=== PATIENT | male | born 1945 | race Caucasian/White ===

== ENCOUNTER 2023-04-19 18:08 | Inpatient (IN) | payer OTHER, MEDICARE ==
[~2023-04-19] VITALS: Wt 93.4 kg
[2023-04-19 21:39] VITALS: BP 139/88
--- NOTE | 2023-04-19 22:52 | NUR ---
ARRIVAL PT ARRIVED IN NO DISTRESS, A/OX3. REPORTS BEING GROGGY FROM MEDICATION. [facility] LLE IS SHORTENED AND EXTERNALY ROTATTED. PT CAN MOVE TOES ON COMMAND AND A PULSE IS PALPABLE. EXTREMITY IS WARM AND HAS BRISK CAP REFILL. NO BRUISING OR CUTS NOTED. VSS. PT EVALUATED BY HOSPITALIST AND RESIDENT, ORDERS IN PLACE. CONSULT PLACED WITH ANSWERING SERVICE FOR DR. FREDERICK. PLAN TO CALL WITH FURTHER CONCERNS. THE PATIENT IS RESTING, IN NO DISTRESS, CALL LIGHT IN REACH
[2023-04-20] VITALS (15 sets, daily range): BP systolic 123–173; BP diastolic 69–94
--- NOTE | 2023-04-20 04:17 | NUR ---
SHIFT SUMMARY VSS. PT SLEPT ON AND OFF T/O THE NIGHT. SENSATION AND CIRCULATION REMAIN INTACT IN LLE. LLE REMAINS EXTERNALLY ROTATED AND SHORTENED. GOOD PULSE, CAP REFILL <3 SEC. NO ACUTE EVENTS T/O THE NIGHT. PLAN FOR PT TO GO TO SURGERY TODAY. HAS BEEN NPO SINCE 0000 IN PREPERATION. MEDICATED FOR PAIN WITH DILAUDID. NO IGNITION SOURCE NOTED
[2023-04-20 05:35] LABS: BASOPHILS ABSOLUTE AUTO 0.03 K/mm3 (0.00-0.23); BASOPHILS PERCENT AUTO 1 % (0-2); EOSINOPHILS ABSOLUTE AUTO 0.15 K/mm3 (0.00-0.68); EOSINOPHILS PERCENT AUTO 3 % (0-6); Hematocrit 33.3 % (37.0-53.0); Hemoglobin 11.4 g/dL (13.5-17.5); IMMATURE GRAN ABSOLUTE AUTO 0.04 K/mm3 (0.00-0.10); IMMATURE GRAN PERCENT AUTO 1 % (0-1); LYMPHOCYTES ABSOLUTE AUTO 0.99 K/mm3 (0.84-5.20); LYMPHOCYTES PERCENT AUTO 20 % (21-46); MONOCYTES ABSOLUTE AUTO 0.63 K/mm3 (0.16-1.47); MONOCYTES PERCENT AUTO 13 % (4-13); Mean Corpuscular HGB 30.2 pg (26.0-34.0); Mean Corpuscular HGB Conc 34.2 g/dL (31.5-36.5); Mean Corpuscular Volume 88 fL (80-100); NEUTROPHILS ABSOLUTE AUTO 3.13 K/mm3 (1.96-9.15); NEUTROPHILS PERCENT AUTO 63 % (41-73); RDW Coefficient Variation 12.4 % (11.7-14.2); RDW Standard Deviation 40.3 fL (35.1-46.3); Red Blood Cell Count 3.78 M/mm3 (4.30-5.90); White Blood Cell Count 4.97 K/mm3 (4.00-11.30)
[2023-04-20 05:38] LABS: Mean Platelet Volume 10.7 fL (9.1-12.4); Platelet Count 134 K/mm3 (150-400)
[2023-04-20 06:29] LABS: Bun/Creatinine Ratio 16.6 (12.0-20.0); Calcium, Blood 7.9 mg/dL (8.5-10.1); Creatinine, Blood 0.78 mg/dL (0.60-1.20)
--- NOTE | 2023-04-20 10:54 | NUR ---
04/20/23 1054 Clifton Mckeon I 30ML OF 0.25% BUPIVICAINE WITH 1:200,000 EPINEPHRINE WAS MIXED IN ROOM BY DR. LUJAN AND ADMNISTERED BY LOCAL INJECTION TO THE LEFT HIP BY DR. FREDERICK.
--- NOTE | 2023-04-20 12:11 | NUR ---
ARRIVAL FROM PACU PT ARRIVED FROM PACU ON BED. BULKY DRESSINGS TO LEFT HIP CDI. PT REPORTS MINIMAL PAIN AT THIS TIME. TOLERATING PO INTAKE, WILL MEDICATE PER EMAR. PT REPORTS NUMBNESS TO FEET FEELS AT BASELINE. ON 2L NASAL CANULA AT THIS TIME. WILL WEAN OFF PT CONTINUES TO CLEAR ANESTHESIA. CALL LIGHT IN REACH. PT DENIES FURTHER NEEDS.
--- NOTE | 2023-04-20 16:49 | NUR ---
SHIFT SUMMARY S/P L HIP PINNING. PT TITRATED TO ROOM AIR AT THIS TIME, SATS IN THE MID 90'S. PT AMBULATED TO BATHROOM AND BACK TO RECLINER. USED WALKER WELL. REPORTED INCREASE TO PAIN WITH AMBULATING BUT RESOLVED HE MOVED MORE. DRESSING REMAINS CDI. PLAN WILL BE FOR PATIENT TO WORK WITH THERAPY TOMORROW. TOLERATING DIET. NO NAUSEA.
[2023-04-21 00:51] VITALS: BP 115/71
--- NOTE | 2023-04-21 01:53 | NUR ---
PATIENT EDUCATION PT EDUCATED MULTIPLE TIMES T/O THE NIGHT ABOUT CALLING AND HAVING A STAFF MEMBER IN THE ROOM BEFORE STANDING AND AMBULATING, IT HAS BEEN WITTNESSED HIS HIP SPASMING AND HIM LEANING OVER ON HIS CHAIR DUE TO THE PAIN. PT HAS STOOD MULTIPLE TIMES WITHOUT CALLING AND APPEARS TO NOT UNDERSTAND THAT HE IS AT RISK OF FALLING AND REFRACTURING HIS NEWLY REPAIRED HIP. PT NOTED TO ARGUE WITH SKEIN INSPECTOR AND BECOME OFFENDED WHEN SHE STATED THAT HE WOULD REQUIRE A BED ALARM IF HE FELL. PT EDUCATED THAT IT IS OUT POLICY TO CALL FOR AMBULATION POST SURGERY WHEN THERAPY HAS NOT CLEARED HIM.
[2023-04-21 05:18] VITALS: BP 141/73
--- NOTE | 2023-04-21 05:22 | NUR ---
SHIFT SUMMARY POD1 LEFT HIP PINNING. DRESSINGS ARE C/D/I. SENSATION AND CIRCULATION REMAINS INTACT IN EXTREMITY. VSS. PT TOLLERATING PO ITNAKE W/O N/V. VOIDING W/O DIFFICULTY. PASSING FLATTUS, NO STOOL. PT EXTREMELY CONCERNED ABOUT BOWEL CARE. PT AMBULATING IN THE HALLS MULTIPLE TIMES T/O THE NIGHT. MEDICATED FOR PAIN WITH EVANS T/O THE NIGHT. NO ACUTE EVENTS NOTED. PLAN FOR PT TO WORK WITH PT/OT NO IGNITION SOURCE NOTED
[2023-04-21 07:42] VITALS: BP 126/62
[2023-04-21 17:29] VITALS: BP 127/71
--- NOTE | 2023-04-21 19:10 | NUR ---
SHIFT SUMMARY PT A&OX4, VSS/RA, BLAINE PO, VOIDING, AMB W/SBA-FWW & GB, UP TO CHAIR ALL DAY, BLE ELEVATED AT REST, ICE ON, PAIN MANAGED PER EMAR. POD1 L HIP GAMMA NAIL, AQUACEL APPLIED TODAY. REPORT TO SANTINO GUERRIER.
[2023-04-21 20:54] VITALS: BP 121/61
[2023-04-22 03:43] VITALS: BP 117/59
--- NOTE | 2023-04-22 04:34 | NUR ---
SHIFT SUMMARY PT HAS HAD SOME ISSUES REMAINING COMFORTABLE. PROVIDER CALLED AND MUSCLE RELAXER WAS ORDERED FOR MUSCLE SPASMS. PT CONTINUES TO USE O2 VIA NC. PT DENIES ANY SOB. PT HAS BEEN ABLE TO SLEEP. PT HAS AMBULATED SOME TO BATHROOM. PT CONTINUES TO HAVE HICCUPS THROUGHOUT THE SHIFT. PT CURRENTLY SLEEPING IN NO DISTRESS. CALL LIGHT IN REACH.
[2023-04-22 07:25] VITALS: BP 112/62
[2023-04-22 15:54] VITALS: BP 169/84
--- NOTE | 2023-04-22 16:36 | NUR ---
"Spiritual Care | Nurse Request Pt. is sitting up in a recliner resting but responds when I entere the room. Pt. is genrally pleasant but unsettled about discharge plans. Listen with empathy and a calminig presence. Facilitated a life review including the Pts. background. Pt. displays evidence of awareness and engagement. Pt. verbalizes his primary concern regarding his bowel blockage. Agian listen with empathy. Briefly considered matters of lillian and belief. Pt. verbalized gratitude for the spiritual care visit."
--- NOTE | 2023-04-22 17:39 | NUR ---
SHIFT SUMMARY PT A&OX4, VSS/RA, BLAINE PO, VOIDING, AMB SBA FWW/GB, UP TO CHAIR, PAIN MANAGED BETTER TODAY. POD2 L HIP GAMMA NAIL, AQUACEL CDI. WILL REPORT TO ONCOMING NOC RN.
[2023-04-22 19:46] VITALS: BP 139/67
--- NOTE | 2023-04-23 05:35 | NUR ---
SHIFT SUMMARY PT IS CONCERNED ABOUT HAVING NO BM. PT REFUSED PM STOOL SOFTNERS DUE TO HAVING "TAKEN TO MUCH ALREADY". PT ALSO REFUSED PAIN MEDS DESPITE BEING IN OBVIOUS DISCOMFORT. PT HICCUPS HAVE CONTINUED FOR LAST TWO DAYS. PT REQUESTS A ENEMA TODAY. PT REPORTS PASSING GAS AND DENIES FEELING CONSTIPATED. BT ARE PRESENT X4. PT HAS BEEN VOID WELL. PT CURRENTLY RESTING. CALL LIGHT IN REACH.
[2023-04-23 05:58] VITALS: BP 151/74
[2023-04-23 07:09] VITALS: BP 151/84
[2023-04-23 15:09] VITALS: BP 152/74
--- NOTE | 2023-04-23 15:22 | NUR ---
SHIFT SUMMARY: POD 3 LEFT HIP PINNING PATIENT IS A&OX4. VS ARE WNL AND IS ON RA. PAIN IS MANAGED WITH PO TORADOL AT THIS TIME. HIS LEFT HIP HAS AQUACELS X2 THAT ARE C/D/I. DENIES NUMBNESS OR TINGLING. CAN MOVE ALL FINGERS AND TOES. PATIENT IS A SBA WITH FWW AND GAIT BELT. HE IS VOIDING AND HAD A BOWEL MOVEMENT AFTER 2 SUPPOSITORIES THIS MORNING. HE IS ALSO TOLERATING PO INTAKE. PATIENT CALLS APPROPRIATELY AND IS SITTING UP IN THE RECLINER WITH CALL LIGHT IN REACH. THE PLAN IS TO [facility] AND TO CONTINUE PAIN MANAGEMENT.
[2023-04-23 18:03] LABS: SARS-Cov-2 (COVID-19) PCR, MMC NEGATIVE (NEGATIVE)
[2023-04-23 19:14] VITALS: BP 137/71
[2023-04-24 04:39] VITALS: BP 149/79
[2023-04-24 05:20] LABS: Hematocrit 27.8 % (37.0-53.0); Hemoglobin 9.3 g/dL (13.5-17.5); Mean Corpuscular HGB 30.3 pg (26.0-34.0); Mean Corpuscular HGB Conc 33.5 g/dL (31.5-36.5); Mean Corpuscular Volume 91 fL (80-100); Mean Platelet Volume 10.4 fL (9.1-12.4); Platelet Count 186 K/mm3 (150-400); RDW Coefficient Variation 12.5 % (11.7-14.2); RDW Standard Deviation 41.1 fL (35.1-46.3); Red Blood Cell Count 3.07 M/mm3 (4.30-5.90); White Blood Cell Count 5.26 K/mm3 (4.00-11.30)
--- NOTE | 2023-04-24 05:28 | NUR ---
SHIFT SUMMARY POD 4 L HIP PINNING, AQUACEL DRESSINGS X2 C/D/I. PT A&OX4, VSS. PT REPORTS MILD PAIN BUT DECLINES PAIN MEDICATIONS R/T CONSTIPATION. PT TOLERATING PO INTAKE, DENIES N/T. PT SBA W/ FWW AND GB. AMBULATED X1 THIS SHIFT IN HALLWAY. PT APPROPRIATE USE OF CALL LIGHT, AND UP IN RECLINER T/O NIGHT. PLANS FOR DISCHARGE TO [facility] TODAY AND PT HOPES FOR RETURN TRANSFER TO [facility].
[2023-04-24 05:54] LABS: Bun/Creatinine Ratio 21.9 (12.0-20.0); Calcium, Blood 8.2 mg/dL (8.5-10.1); Creatinine, Blood 0.87 mg/dL (0.60-1.20); Potassium, Blood 3.9 mmol/L (3.5-5.5); Thyroid Stimulating Hormone 0.625 uIU/mL (0.360-4.800)
[2023-04-24 07:27] VITALS: BP 148/71
--- NOTE | 2023-04-24 11:37 | NUR ---
RE[facility] ALL QUESTIONS ANSWERED. PLAN IS FOR PATIENTS RIDE TO PICK HIM UP AT APPROX 1300.
--- NOTE | 2023-04-24 14:07 | NUR ---
DISCHARGE POD 4 L HIP PINNING PT [id number], DENIED PAIN DURING SHIFT. CONTINUED TO AMBULATE WELL WITH FWW AND GB. [facility]EL[facility]IR [facility]. ALL BELONGINGS WITH PATIENT. DENIED FURTHER NEEDS AT THIS TIME.
== END 2023-04-24 14:09 | DRG 482 ==
LOC: SURS 18:08
PROVIDERS: Internal Medicine; Orthopaedic Surgery; ADMIT Student in an Organized Health Care Education/Training Program
PROC: 0QH736Z Insertion of Intramedullary Internal Fixation Device into Left Upper Femur, Percutaneous Approach (ICD-10-PCS; principal; 2023-04-20 10:00)
DX: S72.142A Displaced intertrochanteric fracture of left femur, initial encounter for closed fracture (principal); K59.00 Constipation, unspecified; R03.0 Elevated blood-pressure reading, without diagnosis of hypertension; M54.40 Lumbago with sciatica, unspecified side; G89.29 Other chronic pain; F17.210 Nicotine dependence, cigarettes, uncomplicated; N40.0 Benign prostatic hyperplasia without lower urinary tract symptoms; Z20.822 Contact with and (suspected) exposure to COVID-19; V86.56XA Driver of dirt bike or motor/cross bike injured in nontraffic accident, initial encounter; Z60.2 Problems related to living alone; Z88.0 Allergy status to penicillin
CPT/HCPCS: 36415; 80048; 84443; 85025; 85027; 97110; 97116; 97162; 97530; A9270; C1713; C1769; J0171; J0690; J1100; J1170; J1650; J1885; J2250; J2405; J2704; J3010; J7030; U0002

== ENCOUNTER 2025-03-06 07:31 | Day surgery (SDC) | payer OTHER ==
[2025-03-05 16:58] VITALS: BP 158/120
[2025-03-05 16:59] VITALS: BP 176/95
--- NOTE | 2025-03-05 17:01 | NUR ---
PT TO ROOM 215 DIRECT ADMIT FROM [facility]. RECENT HARDWARE REMOVAL LEFT HIP. PT FELT SUDDEN POP AND FELT PAIN IN HIP. LEFT LEG SLIGHTLY SHORTENED BUT NO ROTATION NOTED. PAIN PRESENTLY 5/10. 20G SL PRESENT L AC. OBTAINING ORDERS. WILL CONTINUE TO MONITOR.
--- NOTE | 2025-03-05 18:19 | NUR ---
END OF SHIFT PT RESTING. EATING MEAL TRAY. WILL BE NPO AFTER MIDNIGHT. IV TO SL. RECENTLY MEDICATED FOR PAIN.
[2025-03-05 20:25] VITALS: BP 137/73
[2025-03-06] VITALS (20 sets, daily range): BP systolic 87–158; BP diastolic 53–88
[2025-03-06 05:56] LABS: BASOPHILS ABSOLUTE AUTO 0.03 K/mm3 (0.00-0.23); BASOPHILS PERCENT AUTO 1 % (0-2); EOSINOPHILS ABSOLUTE AUTO 0.28 K/mm3 (0.00-0.68); EOSINOPHILS PERCENT AUTO 4 % (0-6); IMMATURE GRAN ABSOLUTE AUTO 0.04 K/mm3 (0.00-0.10); IMMATURE GRAN PERCENT AUTO 1 % (0-1); LYMPHOCYTES ABSOLUTE AUTO 1.49 K/mm3 (0.84-5.20); LYMPHOCYTES PERCENT AUTO 24 % (21-46); MONOCYTES ABSOLUTE AUTO 0.76 K/mm3 (0.16-1.47); MONOCYTES PERCENT AUTO 12 % (4-13); Mean Corpuscular HGB 31.2 pg (26.0-34.0); Mean Corpuscular HGB Conc 34.4 g/dL (31.5-36.5); Mean Corpuscular Volume 91 fL (80-100); Mean Platelet Volume 10.6 fL (9.1-12.4); NEUTROPHILS ABSOLUTE AUTO 3.71 K/mm3 (1.96-9.15); NEUTROPHILS PERCENT AUTO 59 % (41-73); Platelet Count 177 K/mm3 (150-400); RDW Coefficient Variation 12.4 % (11.7-14.2); RDW Standard Deviation 40.8 fL (35.1-46.3); Red Blood Cell Count 3.53 M/mm3 (4.30-5.90); White Blood Cell Count 6.31 K/mm3 (4.00-11.30)
[2025-03-06 06:33] LABS: Albumin, Blood 3.2 g/dL (3.4-5.0); Bilirubin, Total 1.2 mg/dL (0.1-1.0); Bun/Creatinine Ratio 15.1 (12.0-20.0); Calcium, Blood 8.1 mg/dL (8.5-10.1); Creatinine, Blood 0.86 mg/dL (0.60-1.20); Globulin, Blood 3.2 g/dL (2.2-4.0); Potassium, Blood 3.6 mmol/L (3.5-5.5); Total Protein, Blood 6.4 g/dL (6.4-8.2)
[~2025-03-06 07:31] MED LIST: Lactated Ringer's 1,000 ML IV SCH; Magnesium Hydroxide Conc 10 ML UDC PO PRN; Morphine Sulfate 4 MG/1 ML Injection IV PRN; Ondansetron HCl 2 MG / ML 2ML Vial IV PRN; Polyethylene Glycol 3350 17 gm PO PRN
[2025-03-06] MEDS ORDERED: Sennosides 8.6 MG Tab PO PRN (07:55)
[2025-03-06] MEDS ORDERED: OxyCODONE 5 mg/Acetamin 325 mg TABLET PO PRN (07:55)
[2025-03-06] MEDS ORDERED: Naloxone HCl 0.4MG / ML 1ML Vial IV PRN (08:00)
[2025-03-06] MEDS ORDERED: Ropivacaine 0.5% HCl/Pf 123.125 MG,EPINEPHrine HCL 0.25 MG,Ketorolac Tromethamine 15 MG... INFIL SCH (08:05)
[2025-03-06] MEDS ORDERED: Ondansetron HCl 2 MG / ML 2ML Vial IV PRN ×2 (08:30→09:25)
[2025-03-06] MEDS ORDERED: Lidocaine HCl 1% 5 ML SYR INJ ONE (08:30)
[2025-03-06] MEDS ORDERED: FentaNYL Citrate 50 MCG/ML 2 ML Injection IV PRN ×2 (08:30)
[2025-03-06] MEDS ORDERED: Albuterol 2.5 MG/3 ML VIAL INH PRN (08:30)
[2025-03-06] MEDS ORDERED: CeFAZolin Sodium 2,000 MG VIAL ONE (08:30)
[2025-03-06] MEDS ORDERED: Tranexamic Acid 100 ML IV ONE ×2 (08:30→13:32)
[2025-03-06] MEDS ORDERED: CeFAZolin Sodium 2,000 MG in NS 100 ML IV SCH ×2 (08:35→18:20)
[2025-03-06] MEDS ORDERED: HYDROmorphone HCl/Pf 1MG SYR IV PRN ×2 (08:35→09:20)
[2025-03-06] MEDS ORDERED: Vancomycin HCL 1,000 MG in NS 250 ML IV SCH ×2 (08:35→22:15)
[2025-03-06] MEDS ORDERED: Lactated Ringer's 1,000 ML IV SCH ×2 (08:35→09:35)
[2025-03-06] MEDS ORDERED: Tranexamic Acid 100 ML IV SCH (08:35)
[2025-03-06] MEDS ORDERED: Atorvastatin 10 MG Tab PO SCH (09:00)
[2025-03-06] MEDS ORDERED: Lactated Ringer's 1,000 ML IV ONE (09:01)
[2025-03-06] MEDS ORDERED: Bisacodyl 10 MG Supp PR PRN (09:15)
[2025-03-06] MEDS ORDERED: DiphenhydrAMINE HCL 25 MG Cap PO PRN (09:15)
[2025-03-06] MEDS ORDERED: OxyCODONE HCL 5 MG TAB PO PRN ×2 (09:15)
[2025-03-06] MEDS ORDERED: propofoL 0 ML IV ONE (09:16)
[2025-03-06] MEDS ORDERED: Prochlorperazine Edisylate 10 mg Vial IV PRN (09:20)
[2025-03-06] MEDS ORDERED: Magnesium Hydroxide Conc 10 ML UDC PO PRN (09:20)
[2025-03-06] MEDS ORDERED: Promethazine HCl 25 MG Tab PO PRN (09:25)
[2025-03-06] MEDS ORDERED: Metoclopramide HCl 5MG / ML 2ML Vial IV PRN (09:25)
--- NOTE | 2025-03-06 09:36 | NUR ---
PT TO PACU VIA BED FROM RM 215 FOR PREOP CARE AT 0920. ALERT & PLEASANT. NO COMPLAINTS. AFEBRILE/VSS. SURGICAL PACK COMPLETE. LARISA HOSE & PAS SLEEVE PLACED TO RLE. SURGICAL HAT/BP CUFF PLACED. LR TO TKO. CAT MAYORGA CRNA AT BEDSIDE SPEAKING w/PATIENT.
--- NOTE | 2025-03-06 09:41 | NUR ---
PT TO OR 4 VIA BED IN STABLE CONDITION AT 0945.
[2025-03-06] MEDS ORDERED: propofoL 200 ML IV ONE (09:44)
[2025-03-06] MEDS ORDERED: Phenylephrine HCl 100 MCG/ML-NS 10MLSYR (1MG/10ML) ONE ×3 (10:19→11:48)
[2025-03-06] MEDS ORDERED: Vancomycin HCl 1000 MG ADDvantage ONE (10:29)
[2025-03-06] MEDS ORDERED: Dexamethasone Sod Phos 10 MG/ML 1ML VIAL ONE (10:33)
[2025-03-06] MEDS ORDERED: Ondansetron HCl 2 MG / ML 2ML Vial ONE (10:33)
[2025-03-06] MEDS ORDERED: propofoL 20 ML IV ONE ×2 (10:33→12:40)
[2025-03-06] MEDS ORDERED: Ketorolac Tromethamine 15mg Vial IV SCH (12:00)
[2025-03-06] MEDS ORDERED: FentaNYL Citrate 50 MCG/ML 2 ML Injection ONE (12:46)
--- NOTE | 2025-03-06 13:59 | NUR ---
pt to room 215 from pacu. new bulky dressing with foam tape to left hip extending to just above knee cdi. Scds in place. pt alert to verbal. denies pain. polar pack in place. second txa dose complete. post op vs started and are stable. will contine to monitor. pt provided snacks and water to start. IV to SL.
[2025-03-06] MEDS ORDERED: Acetaminophen 500 MG Tab PO SCH (16:00)
--- NOTE | 2025-03-06 17:48 | NUR ---
End of shift Pt resting after hip surgery today. All post op vs stable and WNL. Using polar pack and scds. abx presently infusing. Rates pain 4/10. IV to SL as pt is taking PO well.
[2025-03-06] MEDS ORDERED: Docusate Sodium 100 MG Cap PO SCH (21:00)
[2025-03-06] MEDS ORDERED: Lactobacil 2-S.Thermo-Bifido 1 1 Cap PO SCH (21:00)
[2025-03-07 00:36] VITALS: BP 133/80
[2025-03-07 00:49] VITALS: BP 133/80
[2025-03-07 05:33] LABS: BASOPHILS ABSOLUTE AUTO 0.01 K/mm3 (0.00-0.23); BASOPHILS PERCENT AUTO 0 % (0-2); EOSINOPHILS PERCENT AUTO 0 % (0-6); Hematocrit 27.4 % (37.0-53.0); Hemoglobin 9.2 g/dL (13.5-17.5); IMMATURE GRAN ABSOLUTE AUTO 0.07 K/mm3 (0.00-0.10); IMMATURE GRAN PERCENT AUTO 1 % (0-1); LYMPHOCYTES ABSOLUTE AUTO 0.72 K/mm3 (0.84-5.20); LYMPHOCYTES PERCENT AUTO 6 % (21-46); MONOCYTES ABSOLUTE AUTO 1.15 K/mm3 (0.16-1.47); MONOCYTES PERCENT AUTO 10 % (4-13); Mean Corpuscular HGB 31.1 pg (26.0-34.0); Mean Corpuscular HGB Conc 33.6 g/dL (31.5-36.5); Mean Corpuscular Volume 93 fL (80-100); Mean Platelet Volume 10.3 fL (9.1-12.4); NEUTROPHILS PERCENT AUTO 84 % (41-73); Platelet Count 189 K/mm3 (150-400); RDW Coefficient Variation 12.3 % (11.7-14.2); RDW Standard Deviation 41.2 fL (35.1-46.3); Red Blood Cell Count 2.96 M/mm3 (4.30-5.90); White Blood Cell Count 12.05 K/mm3 (4.00-11.30)
[2025-03-07 06:07] LABS: Magnesium, Blood 2.1 mg/dL (1.6-2.4)
[2025-03-07 06:10] LABS: Albumin, Blood 2.9 g/dL (3.4-5.0); Albumin/Globulin Ratio 0.9 (0.8-1.8); Bilirubin, Total 0.6 mg/dL (0.1-1.0); Bun/Creatinine Ratio 25.2 (12.0-20.0); Calcium, Blood 8.3 mg/dL (8.5-10.1); Creatinine, Blood 0.91 mg/dL (0.60-1.20); Globulin, Blood 3.3 g/dL (2.2-4.0); Potassium, Blood 4.2 mmol/L (3.5-5.5); Total Protein, Blood 6.2 g/dL (6.4-8.2)
[2025-03-07 07:17] VITALS: BP 139/74
[2025-03-07] MEDS ORDERED: Aspirin 81 MG Chew PO SCH (09:00)
[2025-03-07] MEDS ORDERED: Trimethoprim/Sulfamethoxazole DS Tab PO SCH (09:00)
[2025-03-07] MEDS ORDERED: BACTRIM DS TAB1 EAC6 PO (11:35)
[2025-03-07 12:23] VITALS: BP 138/64
[2025-03-07] MEDS ORDERED: ACET500 PO (14:08)
[2025-03-07] MEDS ORDERED: ASPI81CH PO (14:08)
[2025-03-07] MEDS ORDERED: ATOR10 PO (14:09)
[2025-03-07] MEDS ORDERED: OXYC5 PO (14:10)
[2025-03-07] MEDS ORDERED: VISBIOME 112.51 EACH PO (14:11)
[2025-03-07] MEDS ORDERED: Enoxaparin 40 MG/0.4 ML SYR SC SCH (15:00)
--- NOTE | 2025-03-07 16:16 | NUR ---
DC'D 1500 PT AXO4 - BRUISING NOTED TO L HIP "FROM PREVIOUS SURGERIES" PER PT. AQUACELS X 2 CDI. LITTLE PAIN REPORTED PER PT. PT ANXIOUS TO GO HOME. PT SLOW TO LISTEN AT TIMES TO DIRECTIONS FROM MULTIPLE STAFF, STATES "I AM NOT A RULES KENDRA". CONTINUALLY TRYING TO AMBULATE WITHOUT STAFF BEFORE SEEING PT, ETC. RESIDENT TEAM ASSESSED PT AND THEN DR KIMBLE PT - ORDERS TO DC AFTER PT/OT EVALS - PASSED FROM BOTH THERAPIES. PT MAINTAINING POSTERIOR HIP PRECAUTIONS WITH EXTENSIVE EDUCATION FROM MULTIPLE STAFF. PT STATES UNDERDTANDING. VSS THIS SHIFT. AMBULATING WELL WITH FWW. PT SET UP RIDE TO GO HOME - RIDE OBTAINED FWW FOR PT. HARD SCRIPT PROVIDED TO PT. MEDS SENT TO [facility]. DC INSTRUCTIONS GIVEN. PT OUT OF ROOM WITH BELONGINGS, POLAR PACK, AND DC INSTRUCTIONS/SCRIPT @1500.
== END 2025-03-07 16:22 | disposition home or self-care (01) ==
LOC: SDS 07:31 → SURS 07:31 → SDS 03-07 16:22
PROVIDERS: Internal Medicine; Orthopaedic Surgery
PROC: 0SRS01A Replacement of Left Hip Joint, Femoral Surface with Metal Synthetic Substitute, Uncemented, Open Approach (ICD-10-PCS; principal; 2025-03-06 09:00)
DX: S72.012A Unspecified intracapsular fracture of left femur, initial encounter for closed fracture (principal); S73.192A Other sprain of left hip, initial encounter; E78.5 Hyperlipidemia, unspecified; G89.29 Other chronic pain; M54.50 Low back pain, unspecified; D64.9 Anemia, unspecified; E80.6 Other disorders of bilirubin metabolism; I10 Essential (primary) hypertension; Z79.899 Other long term (current) drug therapy; Z88.0 Allergy status to penicillin; Z98.890 Other specified postprocedural states; X58.XXXA Exposure to other specified factors, initial encounter
CPT/HCPCS: 36415; 72170; 73501; 80053; 83735; 85025; 87070; 87071; 87075; 87077; 87186; 87205; 93005; 93010; 94760; 97110; 97116; 97162; 97165; 97530; 97535; A9270; C1776; J0171; J0690; J0735; J1100; J1885; J2270; J2371; J2405; J2704; J2795; J3010; J3370; J7050; J7120